=== PATIENT | female | born 1950 | race Caucasian/White ===

== ENCOUNTER → 2017-02-07 | Outpatient (CLI) | payer MEDICARE, MEDICAID ==
[~2017-02-07] MED LIST: CARV12.545 PO; FURO40TA2 PO; LOSA25TA12 PO; LOVA20TA2 PO; SPIR25TA4 PO; WARF10TA20 PO; [UNRECOGNIZED DRUG - CODE] PO
== END | disposition home or self-care (01) ==
LOC: RAD 13:02
PROVIDERS: ATTEND Specialist
DX: R06.02 Shortness of breath (principal); R05 Cough; I51.7 Cardiomegaly; Z95.2 Presence of prosthetic heart valve; Z95.810 Presence of automatic (implantable) cardiac defibrillator
CPT/HCPCS: 71010

== ENCOUNTER → 2017-04-13 | Outpatient (CLI) | payer MEDICARE, MEDICAID ==
[~2017-04-13] MED LIST changes: +FURO-151 PO; -FURO40TA2 PO
== END | disposition home or self-care (01) ==
LOC: RAD 12:12
PROVIDERS: ATTEND Specialist
DX: M25.472 Effusion, left ankle (principal)
CPT/HCPCS: 73610

== ENCOUNTER → 2017-04-18 | Outpatient (CLI) | payer MEDICARE, MEDICAID | END | disposition home or self-care (01) | LOC: RAD 11:50 | PROVIDERS: ATTEND Podiatrist Foot & Ankle Surgery | DX: M19.072 Primary osteoarthritis, left ankle and foot (principal); M77.32 Calcaneal spur, left foot | CPT/HCPCS: 73700 ==

== ENCOUNTER 2017-08-19 12:05 | Inpatient (IN) | payer MEDICARE, MEDICAID ==
[~2017-08-19] VITALS: Ht 154.9 cm; Wt 57.6 kg
[2017-08-19] MEDS ORDERED: FUROSEMIDE 40MG/4ML VIAL IV STA (13:11)
[2017-08-19 13:38] LABS: BASOPHILS % 0.5 % (0.0-2.0); EOSINOPHILS % 1.7 % (0.0-5.0); HEMATOCRIT. 39.2 % (36.0-48.0); HEMOGLOBIN. 13.1 g/dL (12.0-16.0); LYMPHOCYTES % 17.7 % (20.0-50.0); MEAN CORPUSCULAR HEMOGLOBIN 30.2 pg (28.0-32.0); MEAN CORPUSCULAR VOLUME 90.2 fL (81.0-99.0); MEAN PLATELET VOLUME 9.2 fl (7.4-10.4); MONOCYTES % 4.3 % (2.0-8.0); NEUTROPHILS % 75.8 % (40.0-76.0); PLATELET 195 x1000/uL (130-400); RED BLOOD CELL COUNT 4.35 mill/uL (4.2-5.4); RED CELL DISTRIBUTION WIDTH 14.4 % (11.6-14.6)
[2017-08-19 13:49] LABS: D-DIMER 0.61 mg/L FEU (<0.50); INR 1.5; PARTIAL THROMBOPLASTIN TIME 28.5 sec (23.4-31.0); PROTHROMBIN TIME 15.4 sec (9.4-11.6)
[2017-08-19 13:50] LABS: CARBON DIOXIDE 26 mEq/L (21-32); CHLORIDE 104 mEq/L (98-107)
[2017-08-19 13:54] LABS: TROPONIN I < 0.02 ng/mL (0.00-0.04)
[2017-08-19 18:39] VITALS: BP 120/75
[2017-08-19] MEDS ORDERED: WARFARIN SODIUM 10MG TABLET PO NR (18:45)
[2017-08-19 20:00] VITALS: BP 117/63
[2017-08-19] MEDS ORDERED: CARVEDILOL 12.5MG TABLET PO SCH (21:00)
[2017-08-20] VITALS (7 sets, daily range): BP systolic 90–120; BP diastolic 47–81
[2017-08-20] MEDS: IPRATROPIUM/ALBUTEROL 0.5-3(2.5)MG/3ML NEB HHN SCH ×6 (00:22→20:36)
[2017-08-20] MEDS ORDERED: ACETAMINOPHEN 325MG TABLET PO PRN (05:15)
[2017-08-20 07:02] LABS: INR 1.7
[2017-08-20 07:42] LABS: BASOPHILS % 0.7 % (0.0-2.0); EOSINOPHILS % 1.4 % (0.0-5.0); HEMATOCRIT. 37.5 % (36.0-48.0); LYMPHOCYTES % 27.5 % (20.0-50.0); MEAN CORPUSCULAR HEMOGLOBIN 30.6 pg (28.0-32.0); MEAN CORPUSCULAR VOLUME 88.5 fL (81.0-99.0); MEAN PLATELET VOLUME 9.3 fl (7.4-10.4); MONOCYTES % 4.1 % (2.0-8.0); NEUTROPHILS % 66.3 % (40.0-76.0); PLATELET 187 x1000/uL (130-400); RED BLOOD CELL COUNT 4.24 mill/uL (4.2-5.4); RED CELL DISTRIBUTION WIDTH 14.3 % (11.6-14.6)
[2017-08-20 07:55] LABS: CARBON DIOXIDE 25 mEq/L (21-32); CHLORIDE 102 mEq/L (98-107)
[2017-08-20 07:58] LABS: TROPONIN I 0.84 ng/mL (0.00-0.04)
[2017-08-20] MEDS: FUROSEMIDE 40MG/4ML VIAL IVP SCH ×2 (09:29→11:02)
[2017-08-20] MEDS: LOSARTAN POTASSIUM 25 MG TABLET PO SCH ×2 (11:01→17:00)
[2017-08-20] MEDS: CARVEDILOL 12.5MG TABLET PO SCH ×2 (11:02→21:00)
[2017-08-20] MEDS: NITROGLYCERIN OINT 1GM/INCH UDPKT TD SCH ×2 (14:00→21:07)
[2017-08-20] MEDS ORDERED: WARFARIN SODIUM 10MG TABLET PO NR (18:00)
[2017-08-21] VITALS: BP 109/62
[2017-08-21] MEDS: IPRATROPIUM/ALBUTEROL 0.5-3(2.5)MG/3ML NEB HHN SCH ×6 (00:47→21:25)
[2017-08-21 04:00] VITALS: BP 102/61
[2017-08-21] MEDS: NITROGLYCERIN OINT 1GM/INCH UDPKT TD SCH ×3 (05:28→21:00)
[2017-08-21 06:53] LABS: BASOPHILS % 0.9 % (0.0-2.0); EOSINOPHILS % 3.2 % (0.0-5.0); HEMATOCRIT. 34.8 % (36.0-48.0); HEMOGLOBIN. 11.9 g/dL (12.0-16.0); LYMPHOCYTES % 32.6 % (20.0-50.0); MEAN CORPUSCULAR HEMOGLOBIN 30.4 pg (28.0-32.0); MEAN CORPUSCULAR VOLUME 88.9 fL (81.0-99.0); MEAN PLATELET VOLUME 8.7 fl (7.4-10.4); MONOCYTES % 6.9 % (2.0-8.0); NEUTROPHILS % 56.4 % (40.0-76.0); PLATELET 167 x1000/uL (130-400); RED BLOOD CELL COUNT 3.91 mill/uL (4.2-5.4); RED CELL DISTRIBUTION WIDTH 14.3 % (11.6-14.6)
[2017-08-21 07:16] LABS: PROTHROMBIN TIME 31.2 sec (9.4-11.6)
[2017-08-21 07:58] VITALS: BP 107/62
[2017-08-21 08:12] LABS: CARBON DIOXIDE 29 mEq/L (21-32); CHLORIDE 100 mEq/L (98-107); TROPONIN I 0.29 ng/mL (0.00-0.04)
[2017-08-21] MEDS ORDERED: REGADENOSON 0.4 MG/5 ML IV NR (08:30)
[2017-08-21] MEDS: CARVEDILOL 6.25 MG TABLET PO SCH ×2 (09:14→21:21)
[2017-08-21 12:30] VITALS: BP 105/70
[2017-08-21 16:00] VITALS: BP 110/70
[2017-08-21 20:00] VITALS: BP 115/65
[2017-08-21] MEDS: LOSARTAN POTASSIUM 25 MG TABLET PO SCH (21:21)
[2017-08-22] VITALS: BP 96/60
[2017-08-22] MEDS: IPRATROPIUM/ALBUTEROL 0.5-3(2.5)MG/3ML NEB HHN SCH ×6 (00:33→21:17)
[2017-08-22 04:00] VITALS: BP 95/60
[2017-08-22 06:01] LABS: BASOPHILS % 0.8 % (0.0-2.0); EOSINOPHILS % 3.1 % (0.0-5.0); HEMATOCRIT. 33.9 % (36.0-48.0); HEMOGLOBIN. 11.5 g/dL (12.0-16.0); LYMPHOCYTES % 25.7 % (20.0-50.0); MEAN CORPUSCULAR HEMOGLOBIN 30.3 pg (28.0-32.0); MEAN CORPUSCULAR VOLUME 89.3 fL (81.0-99.0); MEAN PLATELET VOLUME 8.6 fl (7.4-10.4); MONOCYTES % 6.6 % (2.0-8.0); NEUTROPHILS % 63.8 % (40.0-76.0); PLATELET 192 x1000/uL (130-400); RED CELL DISTRIBUTION WIDTH 14.4 % (11.6-14.6)
[2017-08-22 06:13] LABS: PROTHROMBIN TIME 31.1 sec (9.4-11.6)
[2017-08-22 08:18] LABS: CARBON DIOXIDE 27 mEq/L (21-32); CHLORIDE 103 mEq/L (98-107); TROPONIN I 0.24 ng/mL (0.00-0.04)
[2017-08-22 08:38] VITALS: BP 96/57
[2017-08-22] MEDS: CARVEDILOL 6.25 MG TABLET PO SCH ×2 (08:39→20:27)
[2017-08-22] MEDS: NITROGLYCERIN OINT 1GM/INCH UDPKT TD SCH (08:39)
[2017-08-22] MEDS: FUROSEMIDE 40MG/4ML VIAL IVP SCH (09:00)
[2017-08-22 12:00] VITALS: BP 91/53
[2017-08-22 16:00] VITALS: BP 107/62
[2017-08-22] MEDS ORDERED: WARFARIN SODIUM 7.5MG TABLET PO NR (18:00)
[2017-08-22 20:00] VITALS: BP 107/59
[2017-08-22] MEDS: LOSARTAN POTASSIUM 25 MG TABLET PO SCH (20:26)
[2017-08-23 00:30] VITALS: BP 103/61
[2017-08-23] MEDS: IPRATROPIUM/ALBUTEROL 0.5-3(2.5)MG/3ML NEB HHN SCH ×4 (01:11→12:17)
[2017-08-23 04:00] VITALS: BP 108/67
[2017-08-23 06:39] LABS: INR 2.8; PROTHROMBIN TIME 29.4 sec (9.4-11.6)
[2017-08-23 08:00] VITALS: BP 103/69
[2017-08-23] MEDS: CARVEDILOL 6.25 MG TABLET PO SCH (08:34)
[2017-08-23] MEDS: FUROSEMIDE 40MG/4ML VIAL IVP SCH (08:34)
[2017-08-23 14:40] VITALS: BP 101/47
[2017-08-23] MEDS ORDERED: WARFARIN SODIUM 10MG TABLET PO NR (18:00)
== END 2017-08-23 14:55 | disposition home or self-care (01) | DRG 293 ==
LOC: ENRESERV 15:20 → EDBEDREQ 16:02 → ER 17:49 → 6WST 17:50
PROVIDERS: ADMIT Family Medicine Adult Medicine; ATTEND Family Medicine Adult Medicine
DX: I11.0 Hypertensive heart disease with heart failure (principal); I42.9 Cardiomyopathy, unspecified; Z95.2 Presence of prosthetic heart valve; E78.5 Hyperlipidemia, unspecified; I50.23 Acute on chronic systolic (congestive) heart failure; I25.10 Atherosclerotic heart disease of native coronary artery without angina pectoris; I05.9 Rheumatic mitral valve disease, unspecified; I25.2 Old myocardial infarction; Z95.0 Presence of cardiac pacemaker; Z95.810 Presence of automatic (implantable) cardiac defibrillator; Z88.8 Allergy status to other drugs, medicaments and biological substances; Z79.01 Long term (current) use of anticoagulants
CPT/HCPCS: 36415; 71010; 78582; 80048; 80053; 83605; 83690; 83735; 83880; 84443; 84484; 85025; 85379; 85610; 85730; 87040; 93005; 93306; 93970; 94640; 96374; 99285; A9558; J1940; J7620

== ENCOUNTER → 2018-01-24 | Outpatient (CLI) | payer MEDICARE, MEDICAID ==
[~2018-01-24] MED LIST changes: +WARF5TAB73 PO
== END | disposition home or self-care (01) ==
LOC: RAD 13:58
PROVIDERS: ATTEND Specialist
DX: R05 Cough (principal); I51.7 Cardiomegaly; Z95.810 Presence of automatic (implantable) cardiac defibrillator; Z95.4 Presence of other heart-valve replacement
CPT/HCPCS: 71046

== ENCOUNTER 2018-01-27 03:18 | Inpatient (IN) | payer MEDICARE, MEDICAID ==
[~2018-01-27] VITALS: Ht 154.9 cm; Wt 62.1 kg
[~2018-01-27 03:18] MED LIST changes: -WARF5TAB73 PO
[2018-01-27] MEDS ORDERED: WARF5TAB73 PO (04:23)
[2018-01-27] MEDS ORDERED: [UNRECOGNIZED DRUG - CODE] PO (04:23)
[2018-01-27] MEDS ORDERED: ASPIRIN 81MG TABLET PO ONE (04:30)
[2018-01-27] MEDS ORDERED: CALCIUM GLUCONATE 100MG/ML 10ML VIAL IV ONE (04:30)
[2018-01-27] MEDS ORDERED: CALCIUM GLUCONATE 1000MG in DEXTROSE 5% WATER 50ML IV SCH (05:00)
[2018-01-27 05:11] LABS: INR 2.8; PROTHROMBIN TIME 28.6 sec (9.4-11.6)
[2018-01-27 05:12] LABS: BASOPHILS % 0.4 % (0.0-2.0); EOSINOPHILS % 1.1 % (0.0-5.0); HEMATOCRIT. 32.3 % (36.0-48.0); HEMOGLOBIN. 11.1 g/dL (12.0-16.0); LYMPHOCYTES % 14.8 % (20.0-50.0); MEAN CORPUSCULAR HEMOGLOBIN 30.4 pg (28.0-32.0); MEAN CORPUSCULAR VOLUME 88.2 fL (81.0-99.0); MEAN PLATELET VOLUME 8.4 fl (7.4-10.4); MONOCYTES % 5.3 % (2.0-8.0); NEUTROPHILS % 78.4 % (40.0-76.0); PLATELET 275 x1000/uL (130-400); RED BLOOD CELL COUNT 3.66 mill/uL (4.2-5.4); RED CELL DISTRIBUTION WIDTH 13.8 % (11.6-14.6)
[2018-01-27] MEDS ORDERED: FUROSEMIDE 40MG/4ML VIAL IVP ONE (05:15)
[2018-01-27] MEDS ORDERED: AZITHROMYCIN 500 MG in DEXT 5% WATER 250 ML IV SCH (05:15)
[2018-01-27] MEDS ORDERED: CEFTRIAXONE 1 G PREMIX 50 ML IV ONE (05:15)
[2018-01-27 05:23] LABS: CHLORIDE 101 mEq/L (98-107)
[2018-01-27 05:28] LABS: TROPONIN I < 0.02 ng/mL (0.00-0.04)
[2018-01-27] MEDS ORDERED: AZITHROMYCIN 500 MG in SODIUM CHLORIDE 0.9% 250 ML IV ONE (06:00)
[2018-01-27 10:00] VITALS: BP 104/45
[2018-01-27] MEDS ORDERED: ONDANSETRON HCL 4MG/2ML VIAL IV PRN (10:00)
[2018-01-27] MEDS ORDERED: NITROGLYCERIN 0.4MG TABLET SL SL PRN (10:00)
[2018-01-27] MEDS ORDERED: DOCUSATE SODIUM 100MG CAPSULE PO PRN (10:00)
[2018-01-27] MEDS ORDERED: DIPHENHYDRAMINE 50MG/ML VIAL IV PRN (10:00)
[2018-01-27] MEDS ORDERED: ACETAMINOPHEN 325MG TABLET PO PRN (10:00)
[2018-01-27] MEDS ORDERED: GUAIFENESIN 200MG/10ML SUGAR FREE UDC PO PRN (10:00)
[2018-01-27] MEDS: FUROSEMIDE 40MG/4ML VIAL IVP SCH ×2 (10:00→21:43)
[2018-01-27] MEDS ORDERED: IPRATROPIUM/ALBUTEROL 0.5-3(2.5)MG/3ML NEB INH PRN (10:00)
[2018-01-27] MEDS ORDERED: NA PHOS,M-B/NA PHOS,DI-BA ENEMA 118ML PR PRN (10:00)
[2018-01-27] MEDS ORDERED: ZOLPIDEM TARTRATE 5MG TABLET PO PRN (10:00)
[2018-01-27] MEDS ORDERED: MAGNESIUM/ALUMINUM HYDROXIDE/SIMETHICONE 30ML UDC PO PRN (10:00)
[2018-01-27] MEDS ORDERED: CLONIDINE 0.1MG TABLET PO PRN (10:00)
[2018-01-27] MEDS ORDERED: ENOXAPARIN 40MG/0.4ML SYR SUBCUT SCH (10:00)
[2018-01-27] MEDS: CARVEDILOL 12.5MG TABLET PO SCH ×2 (10:30→17:30)
[2018-01-27] MEDS: LOSARTAN POTASSIUM 25 MG TABLET PO SCH ×2 (10:30→21:00)
[2018-01-27 10:46] VITALS: BP 104/45
[2018-01-27 12:45] VITALS: BP 106/57
[2018-01-27 16:40] VITALS: BP_SYST 100; BP_SYST 97; BP_DIAS 56; BP_DIAS 58
[2018-01-27 16:45] VITALS: BP 96/55
[2018-01-27 17:29] LABS: CREATINE KINASE 39 IU/L (26-192); CREATINE KINASE MB FRACTION < 0.5 ng/mL (0.5-3.6); TROPONIN I < 0.02 ng/mL (0.00-0.04)
[2018-01-27] MEDS: SPIRONOLACTONE 25MG TABLET PO SCH (17:30)
[2018-01-27] MEDS ORDERED: WARFARIN SODIUM 5MG TABLET PO NR (18:00)
[2018-01-27 19:48] VITALS: BP 95/54
[2018-01-28 00:32] VITALS: BP_SYST 107; BP_SYST 119; BP_SYST 88; BP_DIAS 66; BP_DIAS 70; BP_DIAS 95
[2018-01-28 00:52] LABS: CREATINE KINASE 43 IU/L (26-192); CREATINE KINASE MB FRACTION < 0.5 ng/mL (0.5-3.6); TROPONIN I < 0.02 ng/mL (0.00-0.04)
[2018-01-28 04:03] LABS: *AMPHETAMINES SCREEN URINE NEGATIVE (NEGATIVE); *BARBITURATES SCREEN URINE NEGATIVE (NEGATIVE); *BENZODIAZEPINES SCREEN URINE NEGATIVE (NEGATIVE); *COCAINE SCREEN URINE NEGATIVE (NEGATIVE); CANNABINOID URINE SCREEN NEGATIVE (NEGATIVE); METHADONE URINE SCREEN NEGATIVE (NEGATIVE); OPIATES URINE SCREEN NEGATIVE (NEGATIVE); PHENCYCLIDINE URINE SCREEN NEGATIVE (NEGATIVE)
[2018-01-28 04:24] VITALS: BP 104/59
[2018-01-28] MEDS: SPIRONOLACTONE 25MG TABLET PO SCH ×2 (06:00→17:43)
[2018-01-28 07:06] LABS: BASOPHILS % 0.7 % (0.0-2.0); EOSINOPHILS % 1.7 % (0.0-5.0); HEMATOCRIT. 32.3 % (36.0-48.0); HEMOGLOBIN. 10.8 g/dL (12.0-16.0); LYMPHOCYTES % 25.8 % (20.0-50.0); MEAN CORPUSCULAR HEMOGLOBIN 29.4 pg (28.0-32.0); MEAN PLATELET VOLUME 8.4 fl (7.4-10.4); MONOCYTES % 5.6 % (2.0-8.0); NEUTROPHILS % 66.2 % (40.0-76.0); PLATELET 314 x1000/uL (130-400); RED BLOOD CELL COUNT 3.67 mill/uL (4.2-5.4); RED CELL DISTRIBUTION WIDTH 14.3 % (11.6-14.6)
[2018-01-28 07:16] LABS: INR 3.2; PROTHROMBIN TIME 33.7 sec (9.4-11.6)
[2018-01-28 08:00] VITALS: BP_SYST 101; BP_SYST 104; BP_SYST 95; BP_DIAS 49; BP_DIAS 58; BP_DIAS 62
[2018-01-28 08:00] LABS: CHLORIDE 101 mEq/L (98-107)
[2018-01-28] MEDS: PANTOPRAZOLE SODIUM 40 MG/VIAL IV SCH (08:31)
[2018-01-28] MEDS: CARVEDILOL 12.5MG TABLET PO SCH (08:32)
[2018-01-28] MEDS: LOSARTAN POTASSIUM 25 MG TABLET PO SCH ×2 (08:34→20:17)
[2018-01-28] MEDS ORDERED: ASPIRIN 325MG EC TABLET PO SCH (09:00)
[2018-01-28] MEDS ORDERED: ASPIRIN 81MG EC TABLET PO SCH (09:00)
[2018-01-28] MEDS: FUROSEMIDE 40MG/4ML VIAL IVP SCH ×2 (10:00→22:30)
[2018-01-28 12:00] VITALS: BP 105/55
[2018-01-28 16:00] VITALS: BP 102/58
[2018-01-28] MEDS ORDERED: WARFARIN SODIUM 1MG TABLET PO SCH (18:00)
[2018-01-28 20:00] VITALS: BP 109/57
[2018-01-28] MEDS: CARVEDILOL 3.125 MG TABLET PO SCH (20:18)
[2018-01-29] VITALS (8 sets, daily range): BP systolic 97–109; BP diastolic 55–66
[2018-01-29] MEDS: SPIRONOLACTONE 25MG TABLET PO SCH ×2 (05:41→17:54)
[2018-01-29 07:30] LABS: BASOPHILS % 0.7 % (0.0-2.0); EOSINOPHILS % 1.6 % (0.0-5.0); HEMATOCRIT. 31.7 % (36.0-48.0); HEMOGLOBIN. 11.3 g/dL (12.0-16.0); LYMPHOCYTES % 19.9 % (20.0-50.0); MEAN CORPUSCULAR HEMOGLOBIN 31.3 pg (28.0-32.0); MEAN CORPUSCULAR VOLUME 87.9 fL (81.0-99.0); MEAN PLATELET VOLUME 8.4 fl (7.4-10.4); MONOCYTES % 6.1 % (2.0-8.0); NEUTROPHILS % 71.7 % (40.0-76.0); PLATELET 322 x1000/uL (130-400); RED BLOOD CELL COUNT 3.61 mill/uL (4.2-5.4)
[2018-01-29 07:31] LABS: INR 2.9; PROTHROMBIN TIME 30.2 sec (9.4-11.6)
[2018-01-29] MEDS: PANTOPRAZOLE SODIUM 40 MG/VIAL IV SCH (08:26)
[2018-01-29] MEDS: CARVEDILOL 3.125 MG TABLET PO SCH ×2 (08:28→20:03)
[2018-01-29 08:29] LABS: CHLORIDE 100 mEq/L (98-107)
[2018-01-29] MEDS: LOSARTAN POTASSIUM 25 MG TABLET PO SCH ×2 (08:29→20:04)
[2018-01-29] MEDS: FUROSEMIDE 40MG/4ML VIAL IVP SCH ×2 (09:33→22:10)
[2018-01-29] MEDS ORDERED: WARFARIN SODIUM 5MG TABLET PO SCH (18:00)
[2018-01-30] VITALS: BP 96/66
[2018-01-30] MEDS: TRAMADOL 50MG TABLET PO PRN ×2 (04:18→11:42)
[2018-01-30 04:41] VITALS: BP 116/71
[2018-01-30] MEDS: SPIRONOLACTONE 25MG TABLET PO SCH ×2 (05:19→16:32)
[2018-01-30 07:21] LABS: INR 2.6; PROTHROMBIN TIME 26.8 sec (9.4-11.6)
[2018-01-30 07:59] VITALS: BP_SYST 103; BP_SYST 99; BP_DIAS 58; BP_DIAS 59
[2018-01-30 08:00] VITALS: BP 105/63
[2018-01-30] MEDS: LOSARTAN POTASSIUM 25 MG TABLET PO SCH (08:07)
[2018-01-30] MEDS: CARVEDILOL 3.125 MG TABLET PO SCH (08:07)
[2018-01-30] MEDS ORDERED: FAMOTIDINE 20MG TABLET PO SCH (09:00)
[2018-01-30] MEDS: FUROSEMIDE 40MG/4ML VIAL IVP SCH (09:51)
[2018-01-30 11:57] VITALS: BP 104/66
[2018-01-30 16:43] VITALS: BP 94/54
[2018-01-30] MEDS ORDERED: WARFARIN SODIUM 5MG TABLET PO SCH (18:00)
== END 2018-01-30 18:25 | disposition home or self-care (01) | DRG 291 ==
LOC: ER 03:18 → 6WST 06:12 → ENRESERV 07:46
PROVIDERS: ADMIT Family Medicine Adult Medicine; ATTEND Family Medicine Adult Medicine
DX: I11.0 Hypertensive heart disease with heart failure (principal); J96.00 Acute respiratory failure, unspecified whether with hypoxia or hypercapnia; I50.23 Acute on chronic systolic (congestive) heart failure; I42.0 Dilated cardiomyopathy; D64.9 Anemia, unspecified; M79.1 Myalgia; E78.5 Hyperlipidemia, unspecified; Z95.810 Presence of automatic (implantable) cardiac defibrillator; Z79.01 Long term (current) use of anticoagulants; Z82.49 Family history of ischemic heart disease and other diseases of the circulatory system; Z95.2 Presence of prosthetic heart valve; Z88.8 Allergy status to other drugs, medicaments and biological substances
CPT/HCPCS: 36415; 71045; 71046; 73080; 80048; 80053; 80061; 80305; 82550; 82553; 83036; 83605; 83735; 83880; 84145; 84484; 85025; 85610; 87040; 87086; 93005; 93306; 93970; 96365; 96375; 97166; 99285; C9113; J0456; J0610; J0696; J1940; J7050; J7060

== ENCOUNTER 2020-06-18 11:19 | Inpatient (IN) | payer MEDICARE, MEDICAID ==
[~2020-06-18] VITALS: Ht 152.4 cm; Wt 64.9 kg
[~2020-06-18 11:19] MED LIST changes: -LOSA25TA12 PO; +LOSA25TA26 PO; -SPIR25TA4 PO; +SPIR25TA6 PO; +WARF-53 PO; -WARF10TA20 PO; -[UNRECOGNIZED DRUG - CODE] PO
[2020-06-18] MEDS ORDERED: LEVETIRACETAM 1000MG/100ML 100 ML IV ONE (12:00)
[2020-06-18 12:09] LABS: CLARITY URINE CLEAR (CLEAR); COLOR URINE YELLOW (YELLOW); KETONES URINE NEGATIVE (NEGATIVE); LEUKOCYTE ESTERASE URINE NEGATIVE (NEGATIVE); NITRITE URINE NEGATIVE (NEGATIVE); OCCULT BLOOD URINE NEGATIVE (NEGATIVE); PH URINE 7.5 (4.5-8.0); PROTEIN URINE TRACE (NEGATIVE); SPECIFIC GRAVITY URINE 1.013 (1.005-1.030); UROBILINOGEN URINE 0.2 E.U./dL (0.2-1.0)
[2020-06-18 12:10] LABS: HEMATOCRIT. 35.1 % (36.0-48.0); HEMOGLOBIN. 11.8 g/dL (12.0-16.0); MEAN CORPUSCULAR HEMOGLOBIN 27.2 pg (28.0-32.0); MEAN CORPUSCULAR VOLUME 81.1 fL (81.0-99.0); MEAN PLATELET VOLUME 7.7 fl (7.4-10.4); PLATELET 208 x1000/uL (130-400); RED BLOOD CELL COUNT 4.32 mill/uL (4.2-5.4); RED CELL DISTRIBUTION WIDTH 15.5 % (11.6-14.6)
[2020-06-18 12:15] LABS: CHLORIDE 107 mEq/L (98-107)
[2020-06-18 12:23] LABS: CREATINE KINASE 65 IU/L (26-192)
[2020-06-18] MEDS ORDERED: DEXAMETHASONE 4MG/ML 1ML VIAL IV ONE (13:15)
[2020-06-18] MEDS ORDERED: MANNITOL 12.5G (25%) VIAL 50ML IV ONE (13:15)
[2020-06-18 13:19] LABS: PROTHROMBIN TIME 10.8 sec (9.6-11.0)
[2020-06-18 13:49] LABS: PLATELET ESTIMATE NORMAL
[2020-06-18] MEDS ORDERED: POTASSIUM CHLORIDE 20MEQ TABLET SR PO NR (15:30)
[2020-06-18] MEDS: DEXT 5%/LACTATED RINGERS 1,000 ML IV SCH (15:30)
[2020-06-18] MEDS ORDERED: ONDANSETRON HCL 4MG/2ML INJ IV PRN (15:30)
[2020-06-18] MEDS ORDERED: LEVETIRACETAM 500 MG in SODIUM CHLORIDE 0.9% 100 ML IV SCH (15:30)
[2020-06-18] MEDS ORDERED: MORPHINE SULFATE 2 MG/ML CPJ (NOT FOR IM USE) IV PRN (15:30)
[2020-06-18] MEDS ORDERED: NICARDIPINE 40MG/200ML PREMIX 200 ML IV PRN (19:11)
[2020-06-18] MEDS ORDERED: ATORVASTATIN CALCIUM 40MG TABLET PO SCH (21:00)
[2020-06-18] MEDS ORDERED: CARVEDILOL 3.125 MG TABLET PO SCH (21:00)
[2020-06-19] VITALS (60 sets, daily range): BP systolic 104–151; BP diastolic 67–90
[2020-06-19] MEDS: LEVETIRACETAM 500MG PREMIX 100 ML IV SCH ×3 (01:07→20:12)
[2020-06-19 05:03] LABS: CHLORIDE 110 mEq/L (98-107)
[2020-06-19 05:56] LABS: HEMATOCRIT. 35.4 % (36.0-48.0); HEMOGLOBIN. 11.9 g/dL (12.0-16.0); MEAN CORPUSCULAR VOLUME 80.3 fL (81.0-99.0); MEAN PLATELET VOLUME 8.1 fl (7.4-10.4); PLATELET 228 x1000/uL (130-400); RED BLOOD CELL COUNT 4.41 mill/uL (4.2-5.4); RED CELL DISTRIBUTION WIDTH 15.6 % (11.6-14.6)
[2020-06-19] MEDS ORDERED: NICARDIPINE 40MG/200ML PREMIX 200 ML IV ONE (06:33)
[2020-06-19] MEDS ORDERED: NICARDIPINE 50 MG in SODIUM CHLORIDE 0.9% 230 ML IV PRN ×2 (08:00→09:30)
[2020-06-19] MEDS: PANTOPRAZOLE SODIUM 40 MG/VIAL IV SCH (09:00)
[2020-06-19] MEDS: DEXT 5%/LACTATED RINGERS 1,000 ML IV SCH (09:32)
[2020-06-19] MEDS: CEFTRIAXONE 1,000 MG in DEXTROSE 5% WATER 50 ML IV SCH (10:37)
[2020-06-19 11:06] LABS: CLARITY URINE CLEAR (CLEAR); COLOR URINE YELLOW (YELLOW); KETONES URINE NEGATIVE (NEGATIVE); LEUKOCYTE ESTERASE URINE NEGATIVE (NEGATIVE); NITRITE URINE NEGATIVE (NEGATIVE); OCCULT BLOOD URINE NEGATIVE (NEGATIVE); PH URINE 8.5 (4.5-8.0); PROTEIN URINE 1+ (NEGATIVE); SPECIFIC GRAVITY URINE 1.019 (1.005-1.030)
[2020-06-19] MEDS: TACROLIMUS 0.5 MG CAPSULE PO SCH ×2 (12:08→17:49)
[2020-06-19] MEDS: ZORTRESS 0.75 MG PO SCH ×2 (13:23→17:49)
[2020-06-19 13:44] LABS: PLATELET ESTIMATE NORMAL
[2020-06-19] MEDS: METOPROLOL TARTRATE 25MG TABLET PO SCH (20:13)
[2020-06-20] VITALS (67 sets, daily range): BP systolic 112–157; BP diastolic 65–101
[2020-06-20] MEDS ORDERED: PROT40 PO (01:29)
[2020-06-20] MEDS ORDERED: METO25TA6 PO (01:29)
[2020-06-20] MEDS ORDERED: LOVA40TA73 PO (01:30)
[2020-06-20] MEDS ORDERED: PRED5TAB PO (01:36)
[2020-06-20] MEDS ORDERED: VITA400T9 PO (01:36)
[2020-06-20] MEDS ORDERED: OMEG-118 MT (01:36)
[2020-06-20] MEDS ORDERED: ASCO500C18 PO (01:36)
[2020-06-20] MEDS ORDERED: CALC-775 PO (01:36)
[2020-06-20] MEDS: DEXT 5%/LACTATED RINGERS 1,000 ML IV SCH ×2 (03:30→20:21)
[2020-06-20 05:27] LABS: BASOPHILS % 0.6 % (0.0-2.0); CHLORIDE 110 mEq/L (98-107); EOSINOPHILS % 0.1 % (0.0-5.0); HEMATOCRIT. 34.3 % (36.0-48.0); HEMOGLOBIN. 11.7 g/dL (12.0-16.0); LYMPHOCYTES % 11.9 % (20.0-50.0); MEAN CORPUSCULAR HEMOGLOBIN 27.2 pg (28.0-32.0); MEAN CORPUSCULAR VOLUME 79.7 fL (81.0-99.0); MEAN PLATELET VOLUME 7.6 fl (7.4-10.4); MONOCYTES % 8.8 % (2.0-8.0); NEUTROPHILS % 78.6 % (40.0-76.0); PLATELET 239 x1000/uL (130-400); RED BLOOD CELL COUNT 4.31 mill/uL (4.2-5.4); RED CELL DISTRIBUTION WIDTH 15.9 % (11.6-14.6)
[2020-06-20] MEDS: TACROLIMUS 0.5 MG CAPSULE PO SCH ×2 (08:58→17:16)
[2020-06-20] MEDS: PANTOPRAZOLE SODIUM 40 MG/VIAL IV SCH (08:58)
[2020-06-20] MEDS: METOPROLOL TARTRATE 25MG TABLET PO SCH ×2 (08:58→20:20)
[2020-06-20] MEDS: ZORTRESS 0.75 MG PO SCH ×2 (08:59→17:17)
[2020-06-20] MEDS: LEVETIRACETAM 500MG PREMIX 100 ML IV SCH ×2 (09:01→20:21)
[2020-06-20] MEDS ORDERED: CLONIDINE 0.1MG TABLET PO PRN (09:45)
[2020-06-20] MEDS: LOSARTAN POTASSIUM 25 MG TABLET PO SCH (10:00)
[2020-06-20] MEDS: CEFTRIAXONE 1,000 MG in DEXTROSE 5% WATER 50 ML IV SCH (10:00)
[2020-06-20] MEDS ORDERED: DIAZEPAM 2 MG TABLET PO SCH (14:15)
[2020-06-20] MEDS ORDERED: GADOBENATE DIMEGLUMINE 529 MG/ML 10ML IV ONE (16:19)
[2020-06-20] MEDS: DEXAMETHASONE 4MG/ML 1ML VIAL IV SCH ×2 (17:16→23:08)
[2020-06-21] VITALS (36 sets, daily range): BP systolic 101–143; BP diastolic 61–91
[2020-06-21] MEDS: DEXAMETHASONE 4MG/ML 1ML VIAL IV SCH ×3 (05:13→17:47)
[2020-06-21 05:48] LABS: HEMATOCRIT. 35.4 % (36.0-48.0); HEMOGLOBIN. 11.8 g/dL (12.0-16.0); MEAN CORPUSCULAR HEMOGLOBIN 26.7 pg (28.0-32.0); MEAN CORPUSCULAR VOLUME 80.2 fL (81.0-99.0); MEAN PLATELET VOLUME 7.7 fl (7.4-10.4); PLATELET 226 x1000/uL (130-400); RED BLOOD CELL COUNT 4.42 mill/uL (4.2-5.4); RED CELL DISTRIBUTION WIDTH 15.5 % (11.6-14.6)
[2020-06-21 05:50] LABS: CHLORIDE 111 mEq/L (98-107)
[2020-06-21] MEDS: LOSARTAN POTASSIUM 25 MG TABLET PO SCH (08:55)
[2020-06-21] MEDS: LEVETIRACETAM 500MG PREMIX 100 ML IV SCH ×2 (08:55→21:09)
[2020-06-21] MEDS: PANTOPRAZOLE SODIUM 40 MG/VIAL IV SCH (08:56)
[2020-06-21] MEDS: METOPROLOL TARTRATE 25MG TABLET PO SCH ×2 (08:56→21:00)
[2020-06-21] MEDS: TACROLIMUS 0.5 MG CAPSULE PO SCH ×2 (08:57→15:48)
[2020-06-21] MEDS: ZORTRESS 0.75 MG PO SCH ×2 (08:58→15:48)
[2020-06-21] MEDS: DEXT 5%/LACTATED RINGERS 1,000 ML IV SCH (10:58)
[2020-06-21] MEDS: CEFTRIAXONE 1,000 MG in DEXTROSE 5% WATER 50 ML IV SCH (11:07)
[2020-06-21 11:47] LABS: PLATELET ESTIMATE NORMAL
[2020-06-21] MEDS ORDERED: DEXTROSE 50% WATER 50ML SYRINGE IV PRN (14:45)
[2020-06-21] MEDS: BLOOD SUGAR DIAGNOSTIC STRIP TEST SCH ×3 (15:43→21:03)
[2020-06-21] MEDS: INSULIN LISPRO 100 UNITS/ML SUBCUT SCH ×3 (15:50→21:34)
[2020-06-21] MEDS ORDERED: MAGNESIUM 2 G PREMIX 50 ML IV SCH (16:00)
[2020-06-21] MEDS: INSULIN GLARGINE UD 100 UNITS/ML SYR SUBCUT SCH (17:45)
[2020-06-22] VITALS (12 sets, daily range): BP systolic 106–142; BP diastolic 50–85
[2020-06-22] MEDS: BLOOD SUGAR DIAGNOSTIC STRIP TEST SCH ×4 (06:24→21:00)
[2020-06-22] MEDS: INSULIN LISPRO 100 UNITS/ML SUBCUT SCH ×4 (07:42→21:00)
[2020-06-22] MEDS: LEVETIRACETAM 500MG PREMIX 100 ML IV SCH ×2 (08:50→21:04)
[2020-06-22] MEDS: PANTOPRAZOLE SODIUM 40 MG/VIAL IV SCH (08:51)
[2020-06-22] MEDS: TACROLIMUS 0.5 MG CAPSULE PO SCH ×2 (08:52→17:39)
[2020-06-22] MEDS: LOSARTAN POTASSIUM 25 MG TABLET PO SCH (08:52)
[2020-06-22] MEDS: METOPROLOL TARTRATE 25MG TABLET PO SCH ×2 (08:52→21:05)
[2020-06-22] MEDS: ZORTRESS 0.75 MG PO SCH ×2 (08:53→17:39)
[2020-06-22] MEDS: INSULIN GLARGINE UD 100 UNITS/ML SYR SUBCUT SCH (10:51)
[2020-06-22] MEDS: CEFTRIAXONE 1,000 MG in DEXTROSE 5% WATER 50 ML IV SCH (10:52)
[2020-06-22 17:44] LABS: BASOPHILS % 0.6 % (0.0-2.0); HEMATOCRIT. 34.8 % (36.0-48.0); HEMOGLOBIN. 11.4 g/dL (12.0-16.0); LYMPHOCYTES % 8.7 % (20.0-50.0); MEAN CORPUSCULAR VOLUME 82.2 fL (81.0-99.0); MEAN PLATELET VOLUME 7.8 fl (7.4-10.4); MONOCYTES % 9.4 % (2.0-8.0); NEUTROPHILS % 81.3 % (40.0-76.0); PLATELET 214 x1000/uL (130-400); RED BLOOD CELL COUNT 4.23 mill/uL (4.2-5.4); RED CELL DISTRIBUTION WIDTH 15.8 % (11.6-14.6)
[2020-06-23] VITALS (12 sets, daily range): BP systolic 112–132; BP diastolic 53–84
[2020-06-23] MEDS: BLOOD SUGAR DIAGNOSTIC STRIP TEST SCH ×4 (06:50→20:11)
[2020-06-23 06:53] LABS: BASOPHILS % 0.6 % (0.0-2.0); EOSINOPHILS % 0.2 % (0.0-5.0); HEMATOCRIT. 33.9 % (36.0-48.0); HEMOGLOBIN. 11.5 g/dL (12.0-16.0); LYMPHOCYTES % 12.9 % (20.0-50.0); MEAN CORPUSCULAR HEMOGLOBIN 27.6 pg (28.0-32.0); MEAN CORPUSCULAR VOLUME 81.8 fL (81.0-99.0); MEAN PLATELET VOLUME 7.6 fl (7.4-10.4); MONOCYTES % 8.3 % (2.0-8.0); PLATELET 197 x1000/uL (130-400); RED BLOOD CELL COUNT 4.15 mill/uL (4.2-5.4); RED CELL DISTRIBUTION WIDTH 16.1 % (11.6-14.6)
[2020-06-23] MEDS: INSULIN LISPRO 100 UNITS/ML SUBCUT SCH ×4 (07:00→20:11)
[2020-06-23 07:32] LABS: CHLORIDE 113 mEq/L (98-107)
[2020-06-23] MEDS: PANTOPRAZOLE SODIUM 40 MG/VIAL IV SCH (08:50)
[2020-06-23] MEDS: METOPROLOL TARTRATE 25MG TABLET PO SCH ×2 (08:51→20:11)
[2020-06-23] MEDS: TACROLIMUS 0.5 MG CAPSULE PO SCH ×2 (08:51→17:22)
[2020-06-23] MEDS: LOSARTAN POTASSIUM 25 MG TABLET PO SCH (08:51)
[2020-06-23] MEDS: LEVETIRACETAM 500MG PREMIX 100 ML IV SCH (08:52)
[2020-06-23] MEDS: ZORTRESS 0.75 MG PO SCH ×2 (08:52→17:22)
[2020-06-23] MEDS: INSULIN GLARGINE UD 100 UNITS/ML SYR SUBCUT SCH (10:00)
[2020-06-23] MEDS: CEFTRIAXONE 1,000 MG in DEXTROSE 5% WATER 50 ML IV SCH (10:47)
[2020-06-23] MEDS ORDERED: KEPP500 MT (11:34)
[2020-06-23] MEDS ORDERED: LEVETIRACETAM 500MG TABLET PO SCH (21:00)
[2020-06-24] MEDS ORDERED: FAMOTIDINE 20MG TABLET PO SCH (09:00)
== END 2020-06-23 22:27 | DRG 65 ==
LOC: ER 11:25 → EDBEDREQ 14:19 → EDBEDREQTM 14:19 → MICUSO 22:40 → MICUNO 06-19 07:35 → 3WST 06-21 16:33
PROVIDERS: ADMIT Internal Medicine; ATTEND Internal Medicine
DX: I61.1 Nontraumatic intracerebral hemorrhage in hemisphere, cortical (principal); G81.94 Hemiplegia, unspecified affecting left nondominant side; I45.2 Bifascicular block; Z94.1 Heart transplant status; I42.0 Dilated cardiomyopathy; I50.22 Chronic systolic (congestive) heart failure; I11.0 Hypertensive heart disease with heart failure; E87.6 Hypokalemia; E78.5 Hyperlipidemia, unspecified; E11.65 Type 2 diabetes mellitus with hyperglycemia; E83.42 Hypomagnesemia; J84.10 Pulmonary fibrosis, unspecified; R00.0 Tachycardia, unspecified; G40.909 Epilepsy, unspecified, not intractable, without status epilepticus; T38.0X5A Adverse effect of glucocorticoids and synthetic analogues, initial encounter; Z95.810 Presence of automatic (implantable) cardiac defibrillator; Z88.8 Allergy status to other drugs, medicaments and biological substances; Z79.899 Other long term (current) drug therapy; Z79.01 Long term (current) use of anticoagulants; Y92.89 Other specified places as the place of occurrence of the external cause
CPT/HCPCS: 36415; 70544; 70553; 71045; 80048; 80053; 80061; 81003; 82140; 82550; 82962; 83036; 83735; 83880; 84145; 84484; 85025; 86850; 86900; 93005; 93306; 93970; 97116; 97162; 97166; 99291; A9577; C9113; J0696; J1100; J1815; J1953; J2150; J3475; J3490; J7050; J7060; J7507

== ENCOUNTER 2020-06-23 20:28 | Inpatient (IN) | payer MEDICARE, MEDICAID ==
[~2020-06-23] VITALS: Ht 152.4 cm; Wt 52.7 kg
[2020-06-23 20:00] VITALS: BP 138/88
[2020-06-23 20:28] VITALS: BP 138/88
[~2020-06-23 20:28] MED LIST changes: +ASCO500C18 PO; +CALC-775 PO; +KEPP500 MT; +LOVA40TA73 PO; +METO25TA6 PO; +OMEG-118 MT; +PRED5TAB PO; +PROT40 PO; +VITA400T9 PO
[2020-06-23 20:30] VITALS: BP 138/88
[2020-06-24] MEDS ORDERED: ONDANSETRON HCL 4MG/2ML INJ IV PRN (02:45)
[2020-06-24] MEDS ORDERED: CLONIDINE 0.1MG TABLET PO PRN (02:45)
[2020-06-24] MEDS ORDERED: DEXTROSE 50% WATER 50ML SYRINGE IV PRN (02:45)
[2020-06-24] MEDS: BLOOD SUGAR DIAGNOSTIC STRIP TEST SCH ×4 (06:28→21:30)
[2020-06-24 08:00] VITALS: BP 134/87
[2020-06-24] MEDS: INSULIN LISPRO 100 UNITS/ML SUBCUT SCH ×4 (09:00→21:00)
[2020-06-24] MEDS: LEVETIRACETAM 500MG TABLET PO SCH ×2 (09:20→21:30)
[2020-06-24] MEDS: TACROLIMUS 1MG CAPSULE PO SCH ×2 (09:20→16:52)
[2020-06-24] MEDS: LOSARTAN POTASSIUM 25 MG TABLET PO SCH (09:21)
[2020-06-24] MEDS: METOPROLOL TARTRATE 25MG TABLET PO SCH ×2 (09:22→21:30)
[2020-06-24] MEDS: FAMOTIDINE 20MG TABLET PO SCH (09:22)
[2020-06-24] MEDS: ZORTRESS 0.75 MG PO SCH ×2 (09:24→16:52)
[2020-06-24] MEDS ORDERED: BISACODYL 5MG TABLET PO PRN (15:45)
[2020-06-24] MEDS ORDERED: NA PHOS,M-B/NA PHOS,DI-BA ENEMA 118ML PR PRN (15:45)
[2020-06-24] MEDS ORDERED: LACTULOSE 20G/30ML UDC PO PRN (15:45)
[2020-06-24 20:18] VITALS: BP 120/79
[2020-06-25] MEDS: BLOOD SUGAR DIAGNOSTIC STRIP TEST SCH ×4 (05:38→21:22)
[2020-06-25] MEDS: INSULIN LISPRO 100 UNITS/ML SUBCUT SCH ×4 (06:22→21:24)
[2020-06-25 08:28] VITALS: BP 115/79
[2020-06-25] MEDS: FAMOTIDINE 20MG TABLET PO SCH (09:28)
[2020-06-25] MEDS: TACROLIMUS 1MG CAPSULE PO SCH ×2 (09:28→17:22)
[2020-06-25] MEDS: LEVETIRACETAM 500MG TABLET PO SCH ×2 (09:29→21:22)
[2020-06-25] MEDS: METOPROLOL TARTRATE 25MG TABLET PO SCH ×2 (09:29→21:22)
[2020-06-25] MEDS: LOSARTAN POTASSIUM 25 MG TABLET PO SCH (09:29)
[2020-06-25] MEDS: ZORTRESS 0.75 MG PO SCH ×2 (09:31→17:22)
[2020-06-25 20:00] VITALS: BP 132/80
[2020-06-26] MEDS: BLOOD SUGAR DIAGNOSTIC STRIP TEST SCH ×2 (06:30→11:54)
[2020-06-26 08:00] VITALS: BP 101/66
[2020-06-26 08:13] VITALS: BP 109/76
[2020-06-26] MEDS: TACROLIMUS 1MG CAPSULE PO SCH ×2 (08:14→16:38)
[2020-06-26] MEDS: FAMOTIDINE 20MG TABLET PO SCH (08:14)
[2020-06-26] MEDS: ZORTRESS 0.75 MG PO SCH ×2 (08:14→16:38)
[2020-06-26] MEDS: LEVETIRACETAM 500MG TABLET PO SCH ×2 (08:14→20:40)
[2020-06-26] MEDS: METOPROLOL TARTRATE 25MG TABLET PO SCH ×2 (08:15→20:40)
[2020-06-26] MEDS: INSULIN LISPRO 100 UNITS/ML SUBCUT SCH ×2 (08:15→11:55)
[2020-06-26] MEDS: LOSARTAN POTASSIUM 25 MG TABLET PO SCH (08:15)
[2020-06-26 20:00] VITALS: BP 139/93
[2020-06-27 08:00] VITALS: BP 128/79
[2020-06-27] MEDS: TACROLIMUS 1MG CAPSULE PO SCH ×2 (08:59→16:58)
[2020-06-27] MEDS: LEVETIRACETAM 500MG TABLET PO SCH ×2 (08:59→21:01)
[2020-06-27] MEDS: FAMOTIDINE 20MG TABLET PO SCH (08:59)
[2020-06-27] MEDS: METOPROLOL TARTRATE 25MG TABLET PO SCH ×2 (09:00→21:03)
[2020-06-27] MEDS: LOSARTAN POTASSIUM 25 MG TABLET PO SCH (09:00)
[2020-06-27] MEDS: ZORTRESS 0.75 MG PO SCH ×2 (09:01→16:59)
[2020-06-27] MEDS: NYSTATIN/TRIAMCIN CREAM 30GM TOP SCH (16:59)
[2020-06-27 20:00] VITALS: BP 102/41
[2020-06-27 22:00] VITALS: BP 102/41
[2020-06-28 07:09] LABS: EOSINOPHILS % 1.6 % (0.0-5.0); HEMATOCRIT. 32.4 % (36.0-48.0); HEMOGLOBIN. 11.1 g/dL (12.0-16.0); LYMPHOCYTES % 13.7 % (20.0-50.0); MEAN CORPUSCULAR HEMOGLOBIN 27.3 pg (28.0-32.0); MEAN CORPUSCULAR VOLUME 79.5 fL (81.0-99.0); MEAN PLATELET VOLUME 7.9 fl (7.4-10.4); MONOCYTES % 11.1 % (2.0-8.0); NEUTROPHILS % 72.6 % (40.0-76.0); PLATELET 191 x1000/uL (130-400); RED BLOOD CELL COUNT 4.08 mill/uL (4.2-5.4); RED CELL DISTRIBUTION WIDTH 15.7 % (11.6-14.6)
[2020-06-28 08:00] VITALS: BP 100/57
[2020-06-28] MEDS: METOPROLOL TARTRATE 25MG TABLET PO SCH ×2 (08:07→21:37)
[2020-06-28] MEDS: LOSARTAN POTASSIUM 25 MG TABLET PO SCH (08:07)
[2020-06-28] MEDS: NYSTATIN/TRIAMCIN CREAM 30GM TOP SCH ×3 (08:09→16:49)
[2020-06-28] MEDS: ZORTRESS 0.75 MG PO SCH ×2 (08:10→16:49)
[2020-06-28] MEDS: LEVETIRACETAM 500MG TABLET PO SCH ×2 (08:10→21:37)
[2020-06-28] MEDS: TACROLIMUS 1MG CAPSULE PO SCH ×2 (08:10→16:49)
[2020-06-28] MEDS: FAMOTIDINE 20MG TABLET PO SCH (08:10)
[2020-06-28 20:00] VITALS: BP 110/72
[2020-06-29 08:00] VITALS: BP 148/84
[2020-06-29] MEDS: NYSTATIN/TRIAMCIN CREAM 30GM TOP SCH ×3 (10:26→16:45)
[2020-06-29] MEDS: TACROLIMUS 1MG CAPSULE PO SCH ×2 (10:27→16:45)
[2020-06-29] MEDS: ZORTRESS 0.75 MG PO SCH ×2 (10:27→16:45)
[2020-06-29] MEDS: LEVETIRACETAM 500MG TABLET PO SCH ×2 (10:27→20:30)
[2020-06-29] MEDS: LOSARTAN POTASSIUM 25 MG TABLET PO SCH (10:27)
[2020-06-29] MEDS: FAMOTIDINE 20MG TABLET PO SCH (10:27)
[2020-06-29] MEDS: METOPROLOL TARTRATE 25MG TABLET PO SCH ×2 (10:28→20:31)
[2020-06-29 20:00] VITALS: BP 120/85
[2020-06-29] MEDS: ACETAMINOPHEN 325MG TABLET PO PRN (20:30)
[2020-06-30 06:58] LABS: BASOPHILS % 1.5 % (0.0-2.0); EOSINOPHILS % 1.7 % (0.0-5.0); HEMOGLOBIN. 11.2 g/dL (12.0-16.0); MEAN CORPUSCULAR HEMOGLOBIN 27.1 pg (28.0-32.0); MEAN CORPUSCULAR VOLUME 79.9 fL (81.0-99.0); MEAN PLATELET VOLUME 7.9 fl (7.4-10.4); MONOCYTES % 14.6 % (2.0-8.0); NEUTROPHILS % 65.2 % (40.0-76.0); PLATELET 199 x1000/uL (130-400); RED BLOOD CELL COUNT 4.13 mill/uL (4.2-5.4); RED CELL DISTRIBUTION WIDTH 15.3 % (11.6-14.6)
[2020-06-30 08:17] VITALS: BP 127/85
[2020-06-30] MEDS: TACROLIMUS 1MG CAPSULE PO SCH ×2 (08:56→17:45)
[2020-06-30] MEDS: FAMOTIDINE 20MG TABLET PO SCH (08:56)
[2020-06-30] MEDS: LEVETIRACETAM 500MG TABLET PO SCH ×2 (08:56→21:40)
[2020-06-30] MEDS: METOPROLOL TARTRATE 25MG TABLET PO SCH ×2 (08:56→21:00)
[2020-06-30] MEDS: LOSARTAN POTASSIUM 25 MG TABLET PO SCH (08:56)
[2020-06-30] MEDS: ZORTRESS 0.75 MG PO SCH ×2 (09:07→17:45)
[2020-06-30] MEDS: NYSTATIN/TRIAMCIN CREAM 30GM TOP SCH ×3 (09:10→17:45)
[2020-06-30] MEDS ORDERED: ASPI-1158 PO (18:42)
[2020-06-30 20:00] VITALS: BP 118/71
[2020-06-30] MEDS: ACETAMINOPHEN 325MG TABLET PO PRN (21:40)
[2020-07-01] MEDS: METOPROLOL TARTRATE 25MG TABLET PO SCH ×2 (08:29→22:05)
[2020-07-01] MEDS: FAMOTIDINE 20MG TABLET PO SCH (08:30)
[2020-07-01] MEDS: TACROLIMUS 1MG CAPSULE PO SCH ×2 (08:31→16:14)
[2020-07-01] MEDS: LEVETIRACETAM 500MG TABLET PO SCH ×2 (08:32→22:05)
[2020-07-01] MEDS: NYSTATIN/TRIAMCIN CREAM 30GM TOP SCH ×3 (08:32→16:19)
[2020-07-01] MEDS: ZORTRESS 0.75 MG PO SCH ×2 (08:32→16:15)
[2020-07-01] MEDS: LOSARTAN POTASSIUM 25 MG TABLET PO SCH (08:32)
[2020-07-01 08:54] VITALS: BP 102/59
[2020-07-01 20:00] VITALS: BP 131/83
[2020-07-02 08:18] VITALS: BP 105/74
[2020-07-02] MEDS: LEVETIRACETAM 500MG TABLET PO SCH ×2 (08:24→21:43)
[2020-07-02] MEDS: NYSTATIN/TRIAMCIN CREAM 30GM TOP SCH ×3 (08:25→16:24)
[2020-07-02] MEDS: TACROLIMUS 1MG CAPSULE PO SCH ×2 (08:25→16:23)
[2020-07-02] MEDS: FAMOTIDINE 20MG TABLET PO SCH (08:25)
[2020-07-02] MEDS: ZORTRESS 0.75 MG PO SCH ×2 (08:26→16:22)
[2020-07-02] MEDS: LOSARTAN POTASSIUM 25 MG TABLET PO SCH ×2 (08:27→08:30)
[2020-07-02] MEDS: METOPROLOL TARTRATE 25MG TABLET PO SCH ×2 (08:29→21:44)
[2020-07-02 20:00] VITALS: BP 133/79
[2020-07-02] MEDS: ACETAMINOPHEN 325MG TABLET PO PRN (22:02)
[2020-07-03 08:25] VITALS: BP 122/77
[2020-07-03] MEDS: NYSTATIN/TRIAMCIN CREAM 30GM TOP SCH ×3 (08:55→17:53)
[2020-07-03] MEDS: ZORTRESS 0.75 MG PO SCH ×2 (08:55→17:54)
[2020-07-03] MEDS: LEVETIRACETAM 500MG TABLET PO SCH ×2 (08:56→20:05)
[2020-07-03] MEDS: TACROLIMUS 1MG CAPSULE PO SCH ×2 (08:56→17:53)
[2020-07-03] MEDS: FAMOTIDINE 20MG TABLET PO SCH (08:56)
[2020-07-03] MEDS: LOSARTAN POTASSIUM 25 MG TABLET PO SCH (08:56)
[2020-07-03] MEDS: METOPROLOL TARTRATE 25MG TABLET PO SCH ×2 (08:56→20:05)
[2020-07-03] MEDS ORDERED: TOPUD PO (13:42)
[2020-07-03] MEDS ORDERED: LOSA25TA3 PO (13:42)
[2020-07-03] MEDS ORDERED: METO25TA6 PO (13:42)
[2020-07-03] MEDS ORDERED: TOPUD MT (13:58)
[2020-07-03] MEDS ORDERED: LOSA25TA26 PO (13:58)
[2020-07-03] MEDS ORDERED: METO25TA6 MT (13:58)
[2020-07-03] MEDS ORDERED: KEPP500 MT (13:58)
[2020-07-03 20:00] VITALS: BP 128/86
[2020-07-03] MEDS: ACETAMINOPHEN 325MG TABLET PO PRN (20:06)
[2020-07-04 08:25] VITALS: BP 129/89
[2020-07-04] MEDS: METOPROLOL TARTRATE 25MG TABLET PO SCH (08:31)
[2020-07-04] MEDS: FAMOTIDINE 20MG TABLET PO SCH (08:31)
[2020-07-04] MEDS: LOSARTAN POTASSIUM 25 MG TABLET PO SCH (08:31)
[2020-07-04] MEDS: TACROLIMUS 1MG CAPSULE PO SCH (08:31)
[2020-07-04] MEDS: LEVETIRACETAM 500MG TABLET PO SCH (08:31)
[2020-07-04] MEDS: ZORTRESS 0.75 MG PO SCH (08:32)
[2020-07-04] MEDS: NYSTATIN/TRIAMCIN CREAM 30GM TOP SCH (08:33)
[2020-07-04 10:20] VITALS: BP 129/89
== END 2020-07-04 11:20 | disposition home or self-care (01) | DRG 65 ==
PROVIDERS: ADMIT Psychiatry & Neurology Neurology; ATTEND Internal Medicine
PROC: 4A00X4Z Measurement of Central Nervous Electrical Activity, External Approach (ICD-10-PCS; principal; 2020-06-27)
DX: I61.1 Nontraumatic intracerebral hemorrhage in hemisphere, cortical (principal); I42.0 Dilated cardiomyopathy; I50.22 Chronic systolic (congestive) heart failure; Z94.1 Heart transplant status; E11.65 Type 2 diabetes mellitus with hyperglycemia; E78.5 Hyperlipidemia, unspecified; E83.42 Hypomagnesemia; E87.6 Hypokalemia; I11.0 Hypertensive heart disease with heart failure; I45.10 Unspecified right bundle-branch block; G40.909 Epilepsy, unspecified, not intractable, without status epilepticus; R00.0 Tachycardia, unspecified; T38.0X5A Adverse effect of glucocorticoids and synthetic analogues, initial encounter; Z79.01 Long term (current) use of anticoagulants; Z95.810 Presence of automatic (implantable) cardiac defibrillator; Y92.89 Other specified places as the place of occurrence of the external cause; Z88.8 Allergy status to other drugs, medicaments and biological substances; Z79.899 Other long term (current) drug therapy
CPT/HCPCS: 36415; 80048; 82962; 83735; 85025; 92523; 93005; 95816; 97110; 97112; 97116; 97162; 97166; 97530; 97535; J1815; J7507